=== PATIENT | female | born 1965 | race Caucasian/White ===

== ENCOUNTER 2023-06-29 08:30 | Outpatient (CLI) | payer BC, SELFPAY | END 2023-06-29 08:31 | disposition home or self-care (01) | PROVIDERS: PCP Family Medicine; Visit Provider Family Medicine | DX: Z00.00 Encounter for general adult medical examination without abnormal findings (principal); D50.9 Iron deficiency anemia, unspecified; E53.8 Deficiency of other specified B group vitamins; C85.90 Non-Hodgkin lymphoma, unspecified, unspecified site; Z13.1 Encounter for screening for diabetes mellitus; Z13.6 Encounter for screening for cardiovascular disorders | CPT/HCPCS: 80053; 80061; 82607 ==

== ENCOUNTER 2024-07-18 09:18 | Outpatient (CLI) | payer BC, SELFPAY | END 2024-07-18 09:19 | disposition home or self-care (01) | PROVIDERS: PCP Family Medicine; Visit Provider Emergency Medicine | DX: R42 Dizziness and giddiness (principal); D50.8 Other iron deficiency anemias; R47.9 Unspecified speech disturbances; E53.8 Deficiency of other specified B group vitamins | CPT/HCPCS: 80053; 82607; 82728; 84443; 86140 ==

== ENCOUNTER 2024-09-04 09:59 | Outpatient (CLI) | payer BC, SELFPAY ==
--- NOTE | 2024-09-04 10:15 | CRLHL7_ITS ---
For Patients: As a result of the Century Cures Act, medical imaging exams and procedure reports are released immediately into your electronic medical record. You may view this report before your referring provider. If you have questions, please contact your health care provider. Indication: Memory fall, dizziness, were difficulty. History of non-Hodgkin`s lymphoma 8-10 years ago. Technique: Multiplanar, multisequence MRI of the brain obtained without contrast. Comparison: CT head 02/24/2022 Findings: The ventricles and cortical sulci are mildly prominent, compatible with generalized cerebral volume loss. No midline shift or mass effect. No acute intracranial hemorrhage or abnormal extra-axial fluid collection. No suspicious restricted diffusion, or evidence of acute/subacute ischemia. Scattered nonspecific FLAIR hyperintense foci are noted throughout the supratentorial white matter, typical of mild chronic microangiopathy. Midline structures are unremarkable. The major expected intracranial flow voids are visualized. Included bone marrow signal is unremarkable. No suspicious findings in the regional soft tissues. No obstructive paranasal sinus disease or mastoid effusion. Unremarkable orbits. Impression: 1. No evidence of acute intracranial abnormality. 2. Scattered nonspecific FLAIR hyperintense foci throughout the supratentorial white matter, typical of mild chronic microangiopathy. Dictated by Lyla Vivas MD @ 09/04/2024 11:20:22 AM (Electronically Signed)
== END 2024-09-04 10:00 | disposition home or self-care (01) ==
LOC: MRI 09:59
PROVIDERS: PCP Family Medicine; Visit Provider Emergency Medicine
DX: R42 Dizziness and giddiness (principal); R47.9 Unspecified speech disturbances
CPT/HCPCS: 70551

== ENCOUNTER 2025-07-16 13:43 | Outpatient (CLI) | payer OTHER, SELFPAY | END 2025-07-16 13:44 | disposition home or self-care (01) | PROVIDERS: PCP Family Medicine; Visit Provider Family Medicine | DX: Z13.1 Encounter for screening for diabetes mellitus (principal); Z13.21 Encounter for screening for nutritional disorder | CPT/HCPCS: 80048; 82607 ==

== ENCOUNTER 2025-10-23 18:05 | Outpatient (CLI) | payer OTHER, SELFPAY ==
--- NOTE | 2025-10-23 18:20 | CRLHL7_ITS ---
For Patients: As a result of the Century Cures Act, medical imaging exams and procedure reports are released immediately into your electronic medical record. You may view this report before your referring provider. If you have questions, please contact your health care provider. INDICATION: BILATERAL SCREENING MAMMOGRAM, ASYMPTOMATIC 60 Y/O FEMALE COMPARISON: 05/30/2019 TECHNIQUE: Digital mammogram in CC and MLO projections including computer-aided detection (CAD) and tomosynthesis. BREAST COMPOSITION: There are scattered areas of fibroglandular density. FINDINGS: No suspicious findings. ASSESSMENT: BI-RADS 1 Negative RECOMMENDATION: Annual screening mammogram. A lay language report of this examination will be provided to the patient. Dictated by: Etta Chang MD @ 10/25/2025 07:44:42 (Electronically Signed)
== END 2025-10-23 18:06 | disposition home or self-care (01) ==
PROVIDERS: PCP Family Medicine; Visit Provider Family Medicine
DX: Z12.31 Encounter for screening mammogram for malignant neoplasm of breast (principal)
CPT/HCPCS: 77063; 77067